=== PATIENT | female | born 1970 | race African-American/Black ===

== ENCOUNTER 2020-08-25 07:31 | Day surgery (SDC) | payer MEDICAID, SELFPAY ==
[~2020-08-25] VITALS: Ht 174 cm; Wt 87.1 kg
[2020-08-25 08:36] LABS: HCG,QUAL RESULT NEGATIVE (NEGATIVE)
[2020-08-25] MEDS: MIDAZOLAM HCL 5 MG/5 ML VIAL ONE ×2 (10:08→10:12)
[2020-08-25 10:28] VITALS: BP_SYST 123
[2020-08-25] MEDS ORDERED: DIPHENHYDRAMINE INJ 50 MG/ML VIAL ONE (12:47)
== END 2020-08-25 11:00 | disposition home or self-care (01) ==
LOC: SDS 07:31 → SMU 07:31 → SDS 11:00
PROVIDERS: ATTEND Internal Medicine
DX: M47.26 Other spondylosis with radiculopathy, lumbar region (principal); M50.90 Cervical disc disorder, unspecified, unspecified cervical region; M51.16 Intervertebral disc disorders with radiculopathy, lumbar region; G89.4 Chronic pain syndrome; G43.909 Migraine, unspecified, not intractable, without status migrainosus
CPT/HCPCS: 36415; 62323; 84703; 87426; J1200; J2250; J7030; 76000

== ENCOUNTER 2020-11-03 07:40 | Day surgery (SDC) | payer MEDICAID, SELFPAY ==
[~2020-11-03] VITALS: Ht 172.7 cm; Wt 83.5 kg
[2020-11-03 08:39] LABS: HCG,QUAL RESULT NEGATIVE (NEGATIVE)
[2020-11-03] MEDS ORDERED: DIPHENHYDRAMINE INJ 50 MG/ML VIAL ONE (09:48)
[2020-11-03] MEDS: MIDAZOLAM HCL 5 MG/5 ML VIAL ONE ×2 (10:10→10:15)
[2020-11-03 14:56] VITALS: BP_SYST 106
== END 2020-11-03 11:10 | disposition home or self-care (01) ==
LOC: SMU 07:40 → SDS 07:40
PROVIDERS: ATTEND Internal Medicine
DX: M51.16 Intervertebral disc disorders with radiculopathy, lumbar region (principal); Z20.822 Contact with and (suspected) exposure to COVID-19; Z79.899 Other long term (current) drug therapy
CPT/HCPCS: 64483; 84703; J1200; J2250; U0003; 76000